=== PATIENT | female | born 1995 | race Caucasian/White ===

== ENCOUNTER 2017-08-05 22:01 | Emergency (ER) | payer OTHER ==
[2017-08-05] MEDS ORDERED: Sodium Chloride 0.9% 1,000 ML IV ONE (22:39)
[2017-08-05] MEDS ORDERED: Naloxone 0.4 mg/ml Inj (Adult) IVP STA (22:39)
[2017-08-05 23:13] LABS: BASO % 0.3 % (0.0-2.0); EOS # 0.2 K/uL (0.0-0.7); EOS % 3.2 % (0.0-4.0); HEMATOCRIT 38.2 % (34.0-47.0); LYMPH # 1.8 K/uL (1.0-4.3); LYMPH % 34.5 % (20.0-40.0); MEAN CELL VOLUME 83.6 fL (81.0-99.0); MEAN CORPUSCULAR HEMOGLOBIN 28.1 pg (27.0-31.0); MEAN CORPUSCULAR HGB CONC 33.6 g/dL (33.0-37.0); MEAN PLATELET VOLUME 8.5 fL (7.2-11.7); MONO # 0.4 K/uL (0.0-0.8); MONO % 8.2 % (0.0-10.0); NRBC % 0.1 % (0.0-2.0); RED CELL DISTRIBUTION WIDTH 12.8 % (11.5-14.5); WHITE BLOOD COUNT 5.1 K/uL (4.8-10.8)
[2017-08-05] MEDS ORDERED: Naloxone 0.4 mg/ml Inj (Adult) ONE (23:15)
[2017-08-05 23:16] LABS: RBC URINE < 1 /hpf (0-3); URINE BILIRUBIN NEGATIVE (NEGATIVE); URINE BLOOD NEGATIVE (NEGATIVE); URINE COLOR Yellow (YELLOW); URINE GLUCOSE (UA) NORMAL (Normal); URINE KETONE NEGATIVE (NEGATIVE); URINE LEUKOCYTE ESTERASE NEG Leu/uL (Negative); URINE PROTEIN NEGATIVE (NEGATIVE); URINE UROBILINOGEN NORMAL mg/dL (0.2-1.0); WBC URINE < 1 /hpf (0-5)
[2017-08-05 23:25] LABS: ALB/GLOB RATIO 1.5 (1.0-2.1); ALKALINE PHOSPHATASE 46 U/L (38-126); ALT/SGPT 39 U/L (9-52); AST/SGOT 24 U/L (14-36); BILIRUBIN,TOTAL 0.8 mg/dL (0.2-1.3); BLOOD UREA NITROGEN 15 mg/dL (7-17); CALCIUM 8.3 mg/dl (8.6-10.4); CARBON DIOXIDE 21 mmol/L (22-30); CHLORIDE 102 mmol/L (98-107); GFR AFRICAN-AMERICAN > 60; GLUCOSE,RANDOM 83 mg/dL (65-105); POTASSIUM 2.9 mmol/L (3.6-5.2); SODIUM 139 mmol/L (132-148); TOTAL PROTEIN 7.3 g/dL (6.3-8.3)
[2017-08-05 23:41] LABS: ALCOHOL SERUM 293 mg/dl (0-10)
--- NOTE | 2017-08-06 00:12 | C.PDOC ---
History Of Present Illness 21 year old is brought into the ED by EMS after being found unresponsive sleeping in strangers yard, she was combative towards the response team when found. Patient is now unconscious not available for further questioning. Chief Complaint (Nursing): Substance Abuse History Per: EMS History/Exam Limitations: other (Unresponsive ) Onset/Duration Of Symptoms: Hrs Current Symptoms Are (Timing): Still Present Suicide/Self Injury Attempted (Context): None Modifying Factor(s): Alcohol Associated Symptoms: denies: Suicidal Thoughts, Suicidal Plan Involuntary Hold By: None Recent travel outside of the [place]: No Additional History Per: EMS, Law Enforcement Past Medical History Reviewed: Historical Data, Nursing Documentation, Vital Signs Vital Signs: Last Vital Signs Temp 97.8 F 08/06/17 04:48 Pulse 100 H 08/06/17 04:48 Resp 20 08/06/17 04:48 BP 112/59 L 08/06/17 04:48 Pulse Ox 96 08/06/17 05:10 - Medical History PMH: No Chronic Diseases Surgical History: No Surg Hx Family History: States: Unknown Family Hx - Social History Hx Alcohol Use: Yes Hx Substance Use: Yes - Immunization History Hx Tetanus Toxoid Vaccination: No Hx Influenza Vaccination: No Hx Pneumococcal Vaccination: No Review Of Systems Review Of Systems: ROS cannot be obtained secondary to pt's inabilty to answer questions. Physical Exam - Physical Exam Appears: Other (Unresponsive, responds using groans to external rubs) Skin: Normal Color, Warm, Dry Head: Atraumatic, Normacephalic Eye(s): bilateral: Abnormal Pupil (Mid size reactive) Ear(s): Bilateral: Normal Nose: Normal, No Discharge Oral Mucosa: Moist Neck: Normal ROM, Supple Chest: Symmetrical Cardiovascular: Rhythm Regular, No Murmur Respiratory: Normal Breath Sounds, No Accessory Muscle Use, No Rales, No Rhonchi , No Wheezing Gastrointestinal/Abdominal: Soft, No Tenderness Extremity: Normal ROM, No Pedal Edema, No Calf Tenderness, No Swelling Pulses: Left Radial: Normal, Right Radial: Normal, Left Dorsalis Pedis: Normal, Right Dorsalis Pedis: Normal Neurological/Psych: No Response To Commands, Other (Non cooperative for testing ) ED Course And Treatment - Laboratory Results Result Diagrams: 08/05/17 23:09 08/05/17 23:09 O2 Sat by Pulse Oximetry: 96 (On RA) Pulse Ox Interpretation: Normal - CT Scan/US CT head Other Rad Studies (CT/US): Interpreted By Me, Read By Radiologist, Radiology Report Reviewed CT/US Interpretation: FINDINGS: Brain: No acute intracranial hemorrhage. No significant white matter disease. No edema. Ventricles: No significant ventriculomegaly. Bones: No acute displaced fracture. Sinuses: Unremarkable as visualized. No acute sinusitis. Mastoid air cells: Unremarkable as visualized. No mastoid effusion. IMPRESSION: No acute intracranial hemorrhage , or suspicious mass effect Medical Decision Making Medical Decision Making: Impression : 21 y/o female unresponsive with ETOH intoxication. Plan: * Head CT ordered * Blood work ordered * Narcan 0.4 mg PO given * IV fluids given * UA ordered Patient was unresponsive, CT head was taken to rule out any injury, will observed until sober for further questioning. 05:08-Patient woke up, is awake alert and explained she was drinking lost of rum because she received bad news about her father's health, wishes to be D/C but will be D/C once she completes cerebellar functions and is able to walk with no assistance. Disposition - Disposition Referrals: Alcoholics Anonymous [Outside] Disposition: HOME/ ROUTINE Disposition Time: 05:27 Condition: FAIR Additional Instructions: see alcoholics anonymous for further guidance Instructions: Abuse of Alcohol (ED), Alcohol Intoxication (ED) Forms: [facility] (Maltese) - Clinical Impression Clinical Impression: Alcohol abuse - Scribe Statement The provider has reviewed the documentation as recorded by the Scribe Delvis Case All medical record entries made by the Scribe were at my direction and personally dictated by me. I have reviewed the chart and agree that the record accurately reflects my personal performance of the history, physical exam, medical decision making, and the department course for this patient. I have also personally directed, reviewed, and agree with the discharge instructions and disposition.
[2017-08-06 00:23] VITALS: RESP 20
--- NOTE | 2017-08-06 00:45 | CT ---
EXAM: CT Head Without Intravenous Contrast CLINICAL HISTORY: 21 years old, female; Signs and symptoms; Dizziness; Additional info: Overdose TECHNIQUE: Axial computed tomography images of the head/brain without intravenous contrast. All CT scans at this facility use one or more dose reduction techniques, viz.: automated exposure control; ma/kV adjustment per patient size (including targeted exams where dose is matched to indication; i.e. head); or iterative reconstruction technique. Coronal and sagittal reformatted images were created and reviewed. COMPARISON: No relevant prior studies available. FINDINGS: Brain: No acute intracranial hemorrhage. No significant white matter disease. No edema. Ventricles: No significant ventriculomegaly. Bones: No acute displaced fracture. Sinuses: Unremarkable as visualized. No acute sinusitis. Mastoid air cells: Unremarkable as visualized. No mastoid effusion. IMPRESSION: No acute intracranial hemorrhage, or suspicious mass effect.
[2017-08-06 04:48] VITALS: BP 112/59; PULSE 100; TEMP 97.8
[2017-08-06 04:59] VITALS: O2SAT 96
--- NOTE | 2017-08-07 08:29 | CARD ---
APPROVED REPORT EKG Measurement Heart [id number] <Conclusion> Normal sinus rhythm with sinus arrhythmia Biatrial enlargement Abnormal ECG
== END 2017-08-06 06:16 | disposition home or self-care (01) ==
LOC: C.ER 22:01
DX: F10.10 Alcohol abuse, uncomplicated (principal); Y90.8 Blood alcohol level of 240 mg/100 ml or more; E87.6 Hypokalemia
CPT/HCPCS: 70450; 80053; 80320; 80324; 80329; 80345; 80346; 80349; 80353; 80358; 80361; 81001; 82948; 83992; 84703; 85025; 93005; 96361; 96374; 99285; J2310; J3480; J7040